=== PATIENT | female | born 1960 | race Caucasian/White ===

== ENCOUNTER → 2016-06-16 16:47 | Outpatient (CLI) | payer BC ==
[2015-08-06 05:33] VITALS: BMI 28.8
[~2016-06-16 16:47] MED LIST: ALDACTONE25 MG PO; AMITRIPTYLINE150 MG PO; AMOXICILLIN500 M1 PO; BAYER CHEWABLE81 MG PO; CARAFATE1 G PO; CARDIZEM120 MG PO; CATAPRES0.1 MG PO; CYMBALTA60 MG PO; EFFEXOR50 MG PO; FLAGYL500 MG PO; GAS-X125 M1 PO; HYDROCODON-ACE1 EAC9 PO; IBUPROFEN600 MG PO; KLONOPIN1 MG PO; L-LYSINE500 M1 PO; MUCINEX600 MG PO; NITROSTAT0.3 MG SL; PINDOLOL10 MG PO; PREVACID30 MG PO; RESTORIL15 MG PO; RITALIN20 MG PO; SINEQUAN100 MG PO; SOMA350 MG PO; VISTARIL50 MG PO; ZOFRAN4 MG PO
== END | disposition home or self-care (01) ==
LOC: D.MAMMO 08:30
DX: N63 Unspecified lump in breast (principal)

== ENCOUNTER → 2016-12-15 14:07 | Outpatient (CLI) | payer BC ==
[2015-08-06 05:33] VITALS: BMI 28.8
== END ==
LOC: D.CT 12-14 14:09
DX: N28.89 Other specified disorders of kidney and ureter (principal)

== ENCOUNTER 2018-02-15 06:15 | Day surgery (SDC) | payer BC ==
[~2018-02-15] VITALS: Ht 167.6 cm; Wt 83.9 kg
--- NOTE | ~2018-02-15 | OP ---
PATIENT NAME: JEREMY GOULD MEDICAL RECORD: [id number] :60 LOCATION:D.OPS ADMISSION DATE: SURGEON: EVA LEAVITT DPM DATE OF OPERATION: 02/15/2018 PREOPERATIVE DIAGNOSES: 1. HAV, left foot. 2. Instability, left first met cuneiform joint. POSTOPERATIVE DIAGNOSES: 1. HAV, left foot. 2. Instability, left first met cuneiform joint. PROCEDURES: 1. Quiles bunionectomy, left foot. 2. First met cuneiform joint fusion, left foot. ANESTHESIA: Preoperative popliteal block per the anesthesia department as well as intraoperative general anesthesia. HEMOSTASIS: Left thigh tourniquet at 350 mmHg. PREOPERATIVE DETAILS: The patient was taken to the OR and placed on the operating table in supine position, followed by induction of general anesthesia. No local anesthetic was infiltrated. The left extremity was then prepped and draped in usual aseptic technique, followed by exsanguination and inflation of tourniquet. PROCEDURE #1: Quiles bunionectomy, left foot: A 15-blade was used to create an incision from the dorsal aspect of the medial cuneiform distally to the base of proximal phalanx of the hallux. The incision was deepened down through subcutaneous tissue exposing the first MPJ. An inverted-L capsulotomy was performed. The medial capsular flap was reflected and the head of the first metatarsal was delivered. A sagittal saw was used to resect the medial eminence. Attention was then directed to the first interspace where a lateral release was performed. Good clinical reduction of lateral contracture was verified. There was also noted to be spurring on the lateral aspect of the head of the first metatarsal, which was removed with a rongeur. PROCEDURE #2: First met cuneiform joint fusion: Utilizing the incision as described above, the incision was carried down through the subcutaneous tissue being sure to avoid all vital structures. A periosteal incision was made, the length from the dorsal aspect of the medial cuneiform distally joining the capsular incision of the first MPJ. This gave deliverance of the first met cuneiform joint. A sagittal saw was used to resect the joint. Temporary fixation was then used and a 5-hole plate with 1 screw crossing the fusion site was then placed under rigid internal fixation. Excellent alignment was noted, verified by the C-arm. Wound was flushed. A 2-0 Vicryl was then used to close the first MPJ and repair the periosteum over the top of the plate. A 4-0 Rapide was then used to reapproximate the subcutaneous tissue, followed by closure of the skin with 4-0 Rapide in a subcuticular technique, followed by Dermabond. Adaptic, 4 x 4, and Conform were used to dress the wound, followed by application of a modified Butts compression dressing. Tourniquet was deflated. POSTOPERATIVE DETAILS: The patient tolerated the procedure well and left the OR OPERATIVE REPORT [id number] JEREMY GOULD with vital signs stable and vascular status at preoperative levels. The patient was transported to recovery per anesthesia in stable condition. TRANSINT:[id number] Voice Confirmation ID: [id number] DOCUMENT ID: [id number] EVA LEAVITT DPM at 0835 CC: [id number] DICTATION DATE: 02/15/18 1014 [employer]OMOTIONS INTERN: 02/15/18 1212 [facility] 02/15/18 [id number] [place] [address]
[~2018-02-15 06:15] MED LIST changes: +AMITRIPTYLINE100 MG PO; -AMITRIPTYLINE150 MG PO; +BUTALB-APAP-CA1 EACH PO; +FEMARA2.5 MG PO; +LEVOTHYROXINE75 MCG PO; +MAXALT MLT10 MG/TAB PO; +ROBAXIN500 MG PO; +VRAYLAR3 MG PO
[2018-02-15 07:32] VITALS: BP 143/77; Ht 167.6 cm; Wt 83.9 kg
== END 2018-02-15 11:50 | disposition home or self-care (01) ==
LOC: D.OPS 06:15
DX: M20.12 Hallux valgus (acquired), left foot (principal); M25.375 Other instability, left foot; Z01.812 Encounter for preprocedural laboratory examination

== ENCOUNTER 2018-09-12 19:00 | Outpatient (CLI) | payer BC ==
[2018-02-15 07:32] VITALS: BMI 29.9
== END 2018-09-12 23:59 | disposition home or self-care (01) ==
LOC: D.MAMMO 19:00
PROVIDERS: ATTEND Family Medicine
DX: Z12.31 Encounter for screening mammogram for malignant neoplasm of breast (principal)

== ENCOUNTER 2019-10-30 15:39 | Inpatient (IN) | payer OTHER ==
[~2019-10-30] VITALS: Ht 167.6 cm; Wt 86.2 kg
--- NOTE | ~2019-10-30 | HEMODYNAMI ---
PATIENT:JEREMY GOULD MEDICAL RECORD: [id number] : 60 LOCATION:[id number] ADMISSION DATE: 10/30/19 Generatedon:11/02/201915:46 Patient name: JEERMY GOULD Patient #: [id number] SSN: : 1960 Date of study: 11/02/2019 Page: Of Hemodynamic Procedure Report Patient Data Patient Demographics Procedure consent was obtained First Name: JEREMY Gender: Female Last Name: LUIS FERNANDO : 1960 Middle Initial: L Age: 58 year(s) Patient #: [id number] Race: Unknown Additional ID: [id number] Contact details [address]: [address] [place] [address] State: [place] City: [place] Zip code: [address] Past Medical History Allergies Allergen Reaction Date Comments Reported Iodine 11/02/2019 Other allergy 11/02/2019 floxins,enderal Admission Admission Data Admission Date: 10/30/2019 Admission Time: 15:39 Room #: [id number] Height (in.): 66 BSA: 1.95 (m2) Height (cm.): 167.64 BMI: 30.51 (kg/m2) Weight (lbs.): 189 Weight (kg.): 85.73 Procedure Procedure Types Cath Procedure Peripheral Cath Diagnostic Procedure [facility] Peripheral Procedures Venography Extremity Left Lower Ext. Venagram Procedure Description Procedure Date Procedure Date: 11/02/2019 Procedure Start Time: 14:50 Procedure Staff Name Function Reji Fairchild MD Performing Physician Safia Peguero RT Security Nurse Melanie Guy RN Nurse Dano Cleaning RT Scrub Procedure Data Cath Procedure Fluoroscopy Diagnostic fluoroscopy Total fluoroscopy Time: time: 10.2 min 10.2 min Diagnostic fluoroscopy Total fluoroscopy dose: dose: 1098 mGy 1098 mGy Contrast Material Contrast Material Type Amount (ml) Isovue 300 65 Procedure Medications Medication Administration Route Dosage Heparin Flush Bag added to field 3 bags (1000units/500ml NS) Lidocaine 1% added to field 20 Benadryl I.V. 50 mg Solumedrol I.V. 125 mg Versed I.V. 1 mg Fentanyl I.V. 50 mcg Versed I.V. 1 mg Fentanyl I.V. 50 mcg Fentanyl I.V. 100 mcg Heparin Bolus I.V. 4000 units Hemodynamics Rest BSA: 1.95 (m2) O2 Consumption: Estimated: 151.45 (ml/min) O2 Consumption indexed : Estimated:77.67 (ml/min/m) Heart Rate: 23 (bpm) Snapshots Pre Cath Intra NCS Post Cath Vital Signs Time Heart Resp SPO2 etCO2 NIBP (mmHg) Rhythm Pain Sedation Rate (ipm) (%) (mmHg) Status Level (bpm) 14:18:01 90 15 100 30.2 170/87(126) NSR 0 (11) 10(A) , No pain 14:22:17 93 13 99 29.4 169/93(104) NSR 0 (11) 10(A) , No pain 14:26:34 92 19 99 25.6 156/87(113) NSR 0 (11) 10(A) , No pain 14:31:32 92 12 99 16.5 Measuring NSR 0 (11) 10(A) , No pain 14:31:47 91 20 98 29.4 161/87(111) NSR 0 (11) 10(A) , No pain 14:36:03 91 8 99 30.8 156/81(114) NSR 0 (11) 10(A) , No pain 14:40:13 96 16 25.6 153/96(111) NSR 0 (11) 10(A) , No pain 14:44:25 96 12 27.1 168/90(131) NSR 0 (11) 10(A) , No pain 14:48:43 92 16 25.6 163/86(116) NSR 0 (11) 10(A) , No pain 14:52:57 93 15 30.9 171/91(123) NSR 0 (11) 10(A) , No pain 14:57:15 93 16 28.6 150/85(126) NSR 0 (11) 9(A) , No pain 15:01:27 93 18 27.1 161/86(117) NSR 0 (11) 9(A) , No pain 15:05:41 93 20 99 21.8 174/89(128) NSR 0 (11) 9(A) , No pain 15:09:59 91 13 100 30.1 158/88(113) NSR 0 (11) 9(A) , No pain 15:14:13 88 16 100 27.1 170/85(121) NSR 0 (11) 9(A) , No pain 15:18:29 89 18 99 25.6 187/89(124) NSR 0 (11) 9(A) , No pain 15:22:49 89 15 99 27.1 163/107(133) NSR 0 (11) 9(A) , No pain 15:27:48 81 14 99 27.8 Measuring NSR 0 (11) 9(A) , No pain 15:28:06 74 17 99 25.6 209/107(162) NSR 0 (11) 9(A) , No pain 15:32:35 85 15 100 32.4 193/96(139) NSR 0 (11) 9(A) , No pain 15:36:57 90 25 26.3 191/99(135) NSR 0 (11) 9(A) , No pain 15:41:19 92 19 31.6 186/116(134) NSR 0 (11) 9(A) , No pain Medications Time Medication Route Dose Verified Delivered Reason Notes Effe ctiveness by by 14:53:46 Heparin Flush added 3 Reji Mendoza used for Bag to bags Devorah Fairchild procedure (1000units/500ml field MD BARCENAS NS) 14:53:58 Lidocaine 1% added 20ml Reji Mendoza for local to vial Devorah Fairchild anesthetic field MD BARCENAS 14:54:35 Benadryl I.V. 50 mg Reji Navarro Per Devorah Guy RN physician 14:54:49 Solumedrol I.V. 125 Reji Navarro Per mg Devorah Guy RN physician 14:55:01 Versed I.V. 1 mg Reji Navarro for Devorah Guy RN sedation 14:55:13 Fentanyl I.V. 50 Reji Navarro for mcg Devorah Guy RN sedation 15:06:41 Versed I.V. 1 mg Reji Navarro for Devorah Guy RN sedation 15:06:51 Fentanyl I.V. 50 Reji Navarro for mcg Devorah Guy RN sedation 15:25:20 Heparin Bolus I.V. 4000 Reji Navarro Per units Devorah Guy RN physician 15:30:06 Fentanyl I.V. 100 Reji Navarro for [facility] Devorah Guy RN sedation Procedure Log Time Note 13:58:16 Patient Height : 66 inches 13:58:21 Patient Weight : 189 lbs 13:58:45 Time tracking: Regular hours (M-F 7:00 - 5:00) 13:59:35 Plan of Care:Hemodynamics will remain stable., Cardiac rhythm will remain stable., Comfort level will be maintained., Respiratory function will remain adequate., Patient/ family verbilizes understanding of procedure., Procedure tolerated without complication., Recovers from procedure without complications.. 13:59:41 Patient received from Med/Surg to IR Alert and oriented. Tansferred to table in Prone position. 13:59:43 Signed procedure consent form obtained from patient. 13:59:49 H&P Date Dictated: 11/02/2019 Within 30 days and on chart.. 13:59:52 Pre-procedure instructions explained to patient. 13:59:53 Pre-procedure instructions explained to patient. 13:59:54 Pre-op teaching completed and patient verbalized understanding. 14:00:01 Family unavailable. 14:00:03 Patient NPO since Midnight. 14:00:10 Patient allergic to Iodine 14:01:07 Patient allergic to Other allergyfloxins,enderal 14:01:16 Is the patient allergic to Iodine/contrast media? Yes. 14:01:24 Was the patient premedicated? Yes 14:01:26 Is patient on blood thinner?Yes 14:01:29 Patient diabetic? No. 14:01:33 - 14:01:34 ----Pre-sedation anethsthesia assessment.---- 14:01:39 Previous problem with sedation/anesthesia? No ? 14:01:45 Snore? Yes 14:01:47 Sleep apnea? No 14:01:51 Deviated septum? No 14:01:53 Opens mouth fully? Yes 14:01:55 Sticks out tongue? Yes 14:01:59 Airway obstruction? Yes cad 14:02:04 Dentures? No ? 14:02:12 Popliteal region area was prepped with chlora-prep and draped in steril e fashion 14:02:46 Use device set IR Diagnostic 14:02:57 - 14:03:34 BENTSON 145cm wire ([id number]) opened to sterile field. 14:03:35 SHEATH 6FR Brite Tip 35cm ([id number]) opened to sterile field. 14:03:36 Micropuncture VSI 4FR kit opened to sterile field. 14:03:37 Tegaderm 4 x 4 (1626W) opened to sterile field. 14:03:38 Sterile Angiographic Pack opened to sterile field. 14:03:39 Bag Decanter (2001S) opened to sterile field. 14:16:53 ECG and BP/O2 sat monitors applied to patient. 14:16:54 Vital chart was started 14:16:55 Baseline sample Acquired. 14:16:57 Full Disclosure recording started 14:16:59 - 14:17:03 Baseline sample Acquired. 14:17:36 - 14:17:48 Fire Safety Assessment: A--An alcohol-based skin anteseptic being used preoperatively., C--Open oxygen or nitrous oxide is being used. 14:49:41 Physician arrived 14:49:41 --------ALL STOP TIME OUT------ 14:49:42 Final Timeout: patient, procedure, and site verified with staff and physician. All members of the team are in agreement. 14:50:04 Procedure started. 14:50:14 Local anesthetic to left popliteal vein with Lidocaine 1% by Reji Fairchild MD.INITIAL ACCESS ONLY 14:53:46 Heparin Flush Bag (1000units/500ml NS) 3 bags added to field was administered by Reji Fairchild MD; used for procedure; Verbal order read back and verified. 14:53:58 Lidocaine 1% 20ml vial added to field was administered by Reji pruitt MD; for local anesthetic; Verbal order read back and verified. 14:54:35 Benadryl 50 mg I.V. was administered by Melanie Guy RN; Per physician ; Verbal order read back and verified. 14:54:49 Solumedrol 125 mg I.V. was administered by Melanie Guy RN; Per physician; Verbal order read back and verified. 14:55:01 Versed 1 mg I.V. was administered by Melanie Guy RN; for sedation; Verbal order read back and verified. 14:55:13 Fentanyl 50 mcg I.V. was administered by Melanie Guy RN; for sedation ; Verbal order read back and verified. 14:57:22 DILATOR, VESSEL 5/20 opened to sterile field. 15:06:41 Versed 1 mg I.V. was administered by Melanie Guy RN; for sedation; Verbal order read back and verified. 15:06:51 Fentanyl 50 mcg I.V. was administered by Melanie Guy RN; for sedation ; Verbal order read back and verified. 15:10:14 ROADRUNNER .035 145 glide wire ([id number]) opened to sterile field. 15:10:15 CXI Catheter 90cm ([id number]) opened to sterile field. 15:17:18 Sheath 8fr. Switzer 10cm opened to sterile field. 15:17:37 AMPLATZ Super stiff 3mm J 260cm wire ([id number]) opened to sterile field. 15:17:41 Zelante 8Fr Angiojet catheter opened to sterile field. 15:20:57 INFLATOR BasixTOUCH (ZE9451) opened to sterile field. 15:21:26 Inflate balloon Inflation number: 1 A Evercross 12 x 40 x 135 ([id number]) was prepped and advanced across the Undefined1 , then inflated . 15:25:20 Heparin Bolus 4000 units I.V. was administered by Melanie Guy RN; Per physician; Verbal order read back and verified. 15:30:06 Fentanyl 100 mcg I.V. was administered by Melanie Guy RN; for sedation; Verbal order read back and verified. 15:39:42 Procedure ended.(Physican Out) 15:40:08 Fluoroscopy time 10.20 minutes. 15:40:14 Fluoroscopy dose: 1098 mGy 15:40:14 Flurop Dose total: 1098 15:40:19 Contrast amount:Isovue 300 65ml. 15:40:23 Procedure and supply charges have been captured, reviewed, submitted an d are correct. 15:42:34 Report given to Med/Surg. 15:46:06 Vital chart was stopped Intervention Summary Intervention Notes Time ActionType Lesion and Equipment Used Action# Pressure Duration Attributes 15:21:26 Inflate Undefined1 Evercross 12 x 1 0 00:00 balloon 40 x 135 ([id number]) Device Usage Item Name Manufacture Quantity Catalog Hospital Part Current Min imal Lot# / Number Charge Number Stock Stock Serial# Code JULITO 145cm Cook [employer] 1 [id number] 238129 5 wire ([id number]) SHEATH 6FR Cardinal 1 [id number] 353159 381372 945226 1 Brite Tip 35cm Health ([id number]) Micropuncture VSI VASCULAR 1 7266V 208838 873542 5 VSI 4FR kit SOLUTIONS Tegaderm 4 x 4 3M 1 1626W 434556 254945 363544 5 (1626W) Sterile Cardinal 1 [id number] 989864 349637 5 Angiographic Health Pack Bag Decanter Microtek 1 735264 38563 745509 5 () Medical Inc. DILATOR, VESSEL [employer] 1 [id number] 218387 86647 270414 5 07/17 [address] .035 [employer] 1 Y17977 399749 957059 453418 5 [id number] 145 glide wire ([id number]) CXI Catheter [employer] 1 O67581 046396 499776 096810 5 [id number] 90cm ([id number]) Sheath 8fr. Terumo 1 HSV751 691520 7035210 5 Switzer 10cm AMPLATZ Super Dougherty 1 [id number] 657379 259643 5 stiff 3mm J Scientific 260cm wire ([id number]) Zelante 8Fr Dougherty 1 920882-460 028909 822794 070980 5 [employer] [facility] catheter INFLATOR Merit 1 IE1902 764522 926015 315236 5 BioIQ ([id number]) Evercross 12 x Medtronic 1 [id number] 807601 423196 088384 5 40 x 135 ([id number]) Signature Audit [place] Stage Time Signature Unsigned Intra-Procedure 11/02/2019 Safia Peguero 3:46:01 PM RT(R) [facility] [address] [place] [address]
--- NOTE | 2019-10-30 16:48 | NUR ---
RECEIVED PATIENT A DIRECT ADMIT. ALERT AND ORIENTED. NO C/O PAIN. NO S/S OF ACUTE DISTRESS NOTED. LEFT LEG RED AND SWOLLEN. C/O TINGLING AND NUMBESS TO LEFT LEG. SLIGHTLY PAINFUL AT THE THIGH. BEDREST AT THIS TIME. CALL LIGHT IN REACH. DENIES ANY NEEDS AT THIS TIME. WILL CONTINUE TO MONITOR.
[2019-10-30] MEDS ORDERED: PHENERGAN6.25 MG/5 PO (17:02)
[2019-10-30 17:36] LABS: BASOPHILS 0.7 % (0-2); EOSINOPHILS 2.9 % (0-7); HEMATOCRIT 34.5 % (36.0-48.0); HEMOGLOBIN 10.4 g/dL (12-16); IMMATURE GRANULOCYTES 0.8 % (0-5); LYMPHOCYTES 23.5 % (15-50); MCH 26.7 pg (26.0-34.0); MCHC 30.1 g/dL (31.0-37.0); MCV 88.7 fL (80.0-100.0); MEAN PLATELET VOLUME 8.6 fL (7.4-10.4); MONOCYTES 8.8 % (2-11); NEUTROPHILS 63.3 % (40-80); PLATELET COUNT 315 10x3/uL (130-400); RBC 3.89 10x6/uL (4.00-5.40); RDW 17.5 % (11.5-14.5); WBC 11.2 10x3/uL (4.8-10.8)
[2019-10-30 17:39] LABS: APTT 25.1 SECONDS (22.8-39.4); INR 1.1 (0.85-1.17); PROTIME 14.1 SECONDS (11.6-15.0)
[2019-10-30 17:57] LABS: ANION GAP 10.6 mmol/L (8-16); CALCIUM 8.9 mg/dL (8.5-10.1); CARBON DIOXIDE 21.7 mmol/L (21.0-32.0); POTASSIUM - SERUM 4.3 mmol/L (3.5-5.1)
[2019-10-30 18:03] LABS: ALBUMIN 3.8 g/dL (3.4-5.0); BILIRUBIN - TOTAL 0.11 mg/dL (0.2-1.3)
[2019-10-30 18:04] VITALS: BP 119/57
[2019-10-30 18:04] LABS: PROTEIN - SERUM 8.3 g/dL (6.4-8.2)
[2019-10-30 18:11] LABS: D-DIMER-QUANTITATIVE 9.11 ug/mLFEU (0.20-0.54)
--- NOTE | 2019-10-30 18:17 | NUR ---
A&O EATING SUPPER. NO C/O PAIN. NO S/S OF ACUTE DISTRESS NOTED. DENIES ANY NEEDS AT THIS TIME. CALL LIGHT IN REACH. WILL CONTINUE TO MONITOR.
--- NOTE | 2019-10-30 18:34 | NUR ---
PAGED NICOLETTE COWAN APN ABOUT D-DIMER OF 9.11.
[2019-10-30 19:17] LABS: BILIRUBIN NEGATIVE (NEGATIVE); KETONE NEGATIVE (NEGATIVE); NITRITE NEGATIVE (NEGATIVE); UROBILINOGEN NORMAL (NORMAL)
[2019-10-30 19:24] LABS: BACTERIA FEW /hpf (NONE SEEN); EPITHELIAL CELLS 0-5 /hpf (0-5)
[2019-10-30 20:00] VITALS: BP 133/76; BP 134/79
[2019-10-31] VITALS: BP 126/72
[2019-10-31 04:00] VITALS: BP 123/78
[2019-10-31 06:57] LABS: BASOPHILS 0.9 % (0-2); EOSINOPHILS 4.7 % (0-7); HEMOGLOBIN 9.1 g/dL (12-16); IMMATURE GRANULOCYTES 0.4 % (0-5); LYMPHOCYTES 33.8 % (15-50); MCH 26.1 pg (26.0-34.0); MCHC 29.4 g/dL (31.0-37.0); MCV 89.1 fL (80.0-100.0); MEAN PLATELET VOLUME 8.8 fL (7.4-10.4); MONOCYTES 12.6 % (2-11); NEUTROPHILS 47.6 % (40-80); PLATELET COUNT 340 10x3/uL (130-400); RBC 3.48 10x6/uL (4.00-5.40); RDW 17.8 % (11.5-14.5)
[2019-10-31 07:02] LABS: WBC 7.9 10x3/uL (4.8-10.8)
[2019-10-31 07:07] LABS: INR 1.11 (0.85-1.17); PROTIME 14.2 SECONDS (11.6-15.0)
[2019-10-31 07:09] LABS: APTT 31.5 SECONDS (22.8-39.4)
[2019-10-31 07:33] LABS: CALC OSMOLALITY 280 mosm/kg (275-300); CALCIUM 8.3 mg/dL (8.5-10.1); CARBON DIOXIDE 22.8 mmol/L (21.0-32.0); CHLORIDE - SERUM 105 mmol/L (98-107); CREATININE - SERUM 0.8 mg/dL (0.6-1.3); GLUCOSE 136 mg/dL (74-106); PHOSPHOROUS 3.7 mg/dL (2.5-4.9); SODIUM 139 mmol/L (136-145); eGFR NON AFRICAN AMERICAN 78 mL/min (90-120)
[2019-10-31 07:36] LABS: UREA NITROGEN 14 mg/dL (7-18)
[2019-10-31 09:35] VITALS: BP 143/85
[2019-10-31 13:25] VITALS: BP 149/87
[2019-10-31 14:51] VITALS: BMI 30.6
--- NOTE | 2019-10-31 16:10 | NUR ---
I have reviewed this patient and I concur with the Shift Assessment completed by the Licensed Practical Nurse today this shift.
[2019-10-31 17:36] VITALS: BP 136/67
--- NOTE | 2019-10-31 19:00 | NUR ---
A&O RESTING IN BED WITH EYES OPEN. DAUGHTER AT BEDSIDE. NO C/O PAIN. NO S/S OF ACUTE DISTRESS NOTED. DENIES ANY NEEDS AT THIS TIME. CALL LIGHT IN REACH. WILL CONTINUE TO MONITOR.
[2019-10-31 20:00] VITALS: BP 106/72
[2019-11-01] VITALS: BP 118/78
--- NOTE | 2019-11-01 03:04 | NUR ---
ALERT AND ORENTED X4 ABLE TO VOICE NEEDS AND WANTS TO STAFF. IV TO RIGHT AC WITH 1/[address] 89SR SCD IN PLACE TO RIGHT LEG PER ORDER,\ FAMILY AT BEDSIDE CALL LIGHT AND WATER IN REACH AT BEDSIDE. NO S/S OF DISTRESS NO NEEDS.
[2019-11-01 04:00] VITALS: BP 130/71
[2019-11-01 05:31] LABS: HEMATOCRIT 30.2 % (36.0-48.0); HEMOGLOBIN 9.1 g/dL (12-16); LYMPHOCYTES 19.3 % (15-50); MCH 26.6 pg (26.0-34.0); MCHC 30.1 g/dL (31.0-37.0); MCV 88.3 fL (80.0-100.0); MEAN PLATELET VOLUME 8.4 fL (7.4-10.4); NEUTROPHILS 68.7 % (40-80); PLATELET COUNT 384 10x3/uL (130-400); RBC 3.42 10x6/uL (4.00-5.40); RDW 17.3 % (11.5-14.5); WBC 8.4 10x3/uL (4.8-10.8)
[2019-11-01 05:36] LABS: CALC OSMOLALITY 275 mosm/kg (275-300); CALCIUM 8.3 mg/dL (8.5-10.1); CARBON DIOXIDE 22.4 mmol/L (21.0-32.0); CHLORIDE - SERUM 103 mmol/L (98-107); CREATININE - SERUM 0.8 mg/dL (0.6-1.3); GLUCOSE 157 mg/dL (74-106); MAGNESIUM - SERUM 1.8 mg/dL (1.8-2.4); PHOSPHOROUS 2.8 mg/dL (2.5-4.9); POTASSIUM - SERUM 3.9 mmol/L (3.5-5.1); SODIUM 136 mmol/L (136-145); UREA NITROGEN 15 mg/dL (7-18); eGFR NON AFRICAN AMERICAN 78 mL/min (90-120)
--- NOTE | 2019-11-01 07:20 | NUR ---
PT IS RESTING IN BED WITH EYES OPEN. RESPIRATIONS ARE EVEN AND UNLABORED. PT IS AAO X 4 AND ANSWERS ALL QUESTIONS APPROPRIATLEY. SWELLING NOTED TO LLE. LLE PEDAL PULSE IS PALP VERY FAINT AND WEAK. CAP REFILL IS < 3 SECONDS AND EXTREMITY IS WARM TO TOUCH. PT REPORTS SLIGHT PAIN RATED 5/10 TO LLE AND DENIES NEEDS FOR PAIN MANAGEMENT AT THIS TIME. FAMILY MEMBER IS AT BEDSIDE. SCD TO RLE. PIV TO RIGHT AC INFUSING PER ORDER WITHOUT DIFFICULTY. BED IS IN THE LOWEST POSITION. CALL LIGHT AND BEDSIDE TABLE ARE WITHIN REACH. SIDE RAILS X 2. PT DENIES FURTHER NEEDS. WILL CONT TO MONITOR.
[2019-11-01 10:22] VITALS: BP 120/74
--- NOTE | 2019-11-01 10:30 | NUR ---
PT WITH ALLERGY TO CONTRAST. PER DR ANGEL. START ALLERGY PREMED PROTOCOL. NOTIFIED CT. WILL WAIT FURTHER ORDERS/TIMES.
--- NOTE | 2019-11-01 11:10 | NUR ---
CT SCHEDULED FOR 0900 ON 11/02/2019. WILL ORDER PRE MED PROTOCOL WITH APPROPRIATE TIMING. SEE EMAR.
[2019-11-01 13:12] LABS: CA 27-29 21.6 U/mL (0.0-38.6)
[2019-11-01 13:46] VITALS: BP 159/88
[2019-11-01 14:10] LABS: CA125 6.3 U/mL (0.0-38.1); CEA 2.3 ng/mL (0.0-4.7)
--- NOTE | 2019-11-01 18:01 | NUR ---
CONSENTS FOR VENOGRAM WITH THROMBECTOMY SIGNED BY PATIENT. PT DENIES FURTHER QUESTIONS/CONCERNS/NEEDS. ALL SIGNED CONSENTS PLACED IN PT CHART.
[2019-11-01 18:07] VITALS: BP 154/76
[2019-11-01 20:00] VITALS: BP 126/77
[2019-11-02] VITALS (11 sets, daily range): BP systolic 130–175; BP diastolic 70–108
[2019-11-02 08:43] LABS: INR 1.13 (0.85-1.17); PROTIME 14.4 SECONDS (11.6-15.0)
[2019-11-02 08:47] LABS: BASOPHILS 0.3 % (0-2); EOSINOPHILS 0 % (0-7); HEMATOCRIT 30.7 % (36.0-48.0); HEMOGLOBIN 9.2 g/dL (12-16); IMMATURE GRANULOCYTES 0.5 % (0-5); LYMPHOCYTES 9.7 % (15-50); MCH 26.5 pg (26.0-34.0); MCV 88.5 fL (80.0-100.0); MEAN PLATELET VOLUME 8.9 fL (7.4-10.4); MONOCYTES 2.9 % (2-11); NEUTROPHILS 86.6 % (40-80); PLATELET COUNT 384 10x3/uL (130-400); RBC 3.47 10x6/uL (4.00-5.40); RDW 17.9 % (11.5-14.5); WBC 9.5 10x3/uL (4.8-10.8)
[2019-11-02 08:50] LABS: CALC OSMOLALITY 277 mosm/kg (275-300); CALCIUM 8.9 mg/dL (8.5-10.1); CHLORIDE - SERUM 104 mmol/L (98-107); CREATININE - SERUM 0.7 mg/dL (0.6-1.3); GLUCOSE 183 mg/dL (74-106); MAGNESIUM - SERUM 2.2 mg/dL (1.8-2.4); POTASSIUM - SERUM 4.2 mmol/L (3.5-5.1); SODIUM 137 mmol/L (136-145); eGFR NON AFRICAN AMERICAN > 90 mL/min (90-120)
[2019-11-02 08:51] LABS: PHOSPHOROUS 3.7 mg/dL (2.5-4.9); UREA NITROGEN 9 mg/dL (7-18)
--- NOTE | 2019-11-02 09:48 | NUR ---
ALERT AND ORIENTED X4. SKIN COOL AND DRY TO LLE WITH CAP REFILL <3 SEC. DENIES ANY PAIN OR DISCOMFORT AT THIS TIME. PATINET PREMEDICATED AND LEAVING WITH WITH STAFF FOR PROCEDURE. STABLE AT TIME OF DEPARTURE.
--- NOTE | 2019-11-02 10:09 | NUR ---
PATIENT RETURNED FROM PROCEDURE ALERT AND ORIENTED. DENIES ANY PAIN OR DISCOMFORT AT THIS TIME
--- NOTE | 2019-11-02 13:11 | NUR ---
Nutrition follow-up: Pt npo for thrombectomy today PO intake of regular diet 100% of dinner meal No BM recorded Labs reviewed Wt: 189# RDN following.
--- NOTE | 2019-11-02 17:30 | NUR ---
CALLED TO [facility] ROOM WITH PATIENT COMPLAINING OF LOWER ABDOMINAL PAIN RADIATING TO BACK RATING 10/10. DR. STRAUSS AND NICOLETTE COWAN APN NOTIFIED WITH NEW ORDERS NOTED.
--- NOTE | 2019-11-02 18:15 | NUR ---
SPOKE WITH TEST PREPARER AT THIS TIME. STATED PATEINT CALLED HER AND TOLD HER THAT HIS WAS IN PAIN, BP IS HIGH, AND THAT LABS WERE ORDERED AND NOT DRAWN YET. SHE STATED THAT WE CAN CALL AND GET PAIN MEDS AND WHATEVER WE NEED FROM PHYSICIAN, BUT THE STATED THAT ROBERT THE RN HAS ALREADY DONE THAT BUT THAT HE THOUGHT THAT ROBERT NEEDED HELP. CHECKED ON ROBERT. STATED HE ALREADY GAVE MORPHINE. LAB IS IN THE ROOM TO DRAW THE LABS. ROBERT HAS ALREADY TALKED TO DR. STRAUSS AND HAS PAGED NICOLETTE. HE IS GOING TO GIVE APPRESOLINE FOR BP. NO HELP NEEDED WITH THIS PATIENT AT THIS TIME. PATIENT IS STABLE, JUST IN PAIN AND ROBERT IS TAKING CARE OF THE SITUATION WITH NO PROBLEMS AT THIS TIME.
[2019-11-02 18:29] LABS: HEMATOCRIT 32.9 % (36.0-48.0); HEMOGLOBIN 10.2 g/dL (12-16)
[2019-11-03 04:00] VITALS: BP 134/89; BP 197/79
--- NOTE | 2019-11-03 04:29 | NUR ---
AT SHIFT FUNEZ PATIENT GETTING UP FROM BED TO G TO BATHROOM SHE STATED. WHEN STAFF WAS CALLED TO ROOM. BLOOD WAS ON THE FLOOR AND ON THE BED. WHEN CHECKING LEFT POPLITEAL INCISION SITE, SITE WAS BLEEDING DRESSING WAS REMOVED FROM SITE SMALL AREA OF TEGADREM WAS HANING ON ONE SIDE. PRESSER APPLIED TO SITE, AND HELD. UNTILL BLEEDING STOPED. NEW DRESSING APPLIED. EDUCATED PT TO KEEP LEG ELAVATED AND STILL, TO REST IN BED. SO THAT IT DID NOT START BLEEDING AGAIN. SHE STATED WELL WHAT AM I GOING TO DO I HAVE TO GO TO THE BATHROOM. EDUCATED PT. THAT WE WOULD GET HER A BEDPAN TO USE, AND DID. C/O ABD AND PELVAIC PAIN. SEAT COVER CUTTER CALLED AND INFORMED. GAVE PRN M.O.M. TO HELP WITH GAS. NO NEW ORDERS. PATIENT WANTED FOOD WAS EDCATED THAT THE DR AND NOT RESTARTED A DIET. SO SHE WAS TO REMAIN NPO SO IF THAE HAD TO DO EANYTHING IT WOULD NOT BE A PROBLEM, SHE STATED SHE UNDERSTOOD. WAS NOTED LATER TO BE IN BED EATTING CANDY AND DRINKS AT BEDSIDE. D
[2019-11-03 06:06] LABS: ANION GAP 13.3 mmol/L (8-16); CALCIUM 8.4 mg/dL (8.5-10.1); CARBON DIOXIDE 24.7 mmol/L (21.0-32.0); MAGNESIUM - SERUM 2.4 mg/dL (1.8-2.4); PHOSPHOROUS 3.7 mg/dL (2.5-4.9)
[2019-11-03 06:14] LABS: CREATININE - SERUM 0.9 mg/dL (0.6-1.3)
[2019-11-03 06:33] LABS: BASOPHILS 0.1 % (0-2); EOSINOPHILS 0 % (0-7); HEMATOCRIT 27.8 % (36.0-48.0); HEMOGLOBIN 8.3 g/dL (12-16); IMMATURE GRANULOCYTES 0.7 % (0-5); LYMPHOCYTES 11.5 % (15-50); MCH 26.3 pg (26.0-34.0); MCHC 29.9 g/dL (31.0-37.0); MCV 88.3 fL (80.0-100.0); MONOCYTES 7.2 % (2-11); NEUTROPHILS 80.5 % (40-80); PLATELET COUNT 356 10x3/uL (130-400); RBC 3.15 10x6/uL (4.00-5.40); RDW 18.4 % (11.5-14.5); WBC 14.9 10x3/uL (4.8-10.8)
--- NOTE | 2019-11-03 07:45 | NUR ---
AWAKE AND ALERT. ORIENTED X3. NO C/O AT THIS TIME. LUNGS HAVE FAINT WHEEZES THROUGH OUT THE LUNG SHERMAN. NO COUGH NOTED. SKIN IS INTACT WITHOUT REDNESS EXCEPT AREA TO BACK OF LEFT LEG BEHIND THE KNEE WHICH HAS A DRY INTACT DRESSING IN PLACE. DENIES NEEDS. IV TO RIGHT AC IS PATENT WITHOUT REDNESS AT INSERTION SITE. DENIES NEEDS.
[2019-11-03 10:00] VITALS: BP 121/58
--- NOTE | 2019-11-03 10:00 | NUR ---
RESTING QUIETLY IN BED. DENIES NEEDS.
--- NOTE | 2019-11-03 12:30 | NUR ---
LUNCH SERVED IN ROOM. ATE ALL OF MEAL DENIES NEEDS.
[2019-11-03 12:42] VITALS: BP 122/76
--- NOTE | 2019-11-03 14:37 | NUR ---
REQUESTED AND GIVNE ONE HYDROCODONE PO FOR C/O LEFT LEG PAIN LEVEL 7. WILL MONITOR.
[2019-11-03 17:39] VITALS: BP 130/53
--- NOTE | 2019-11-03 18:32 | NUR ---
ATE MOST OF SUPPER. SITTING UP IN CHAIR AT BEDSIDE. NO CHANGES NOTED. DENIES NEEDS.
--- NOTE | 2019-11-03 19:00 | NUR ---
BEDSIDE REPORT RECEIVED AND CARE OF PT ASSUMED. PT LYING IN HIGH BERRY'S POSITION VISITING WITH FAMILY MEMBER. IV TO RIGHT AC PATENT WITH NS INFUSING AT 50 ML/HR. TELEMETRY IN PLACE AND READING SR AT THIS ASSESSMENT.
[2019-11-03 20:00] VITALS: BP 139/73
--- NOTE | 2019-11-03 20:25 | NUR ---
HS MEDICATIONS GIVEN TO INCLUDE RESTORIL, KLONOPIN, AND NORCO PER PT REQUEST. WILL CONTINUE TO MONITOR FOR NEEDS.
[2019-11-04] VITALS (9 sets, daily range): BP systolic 125–168; BP diastolic 62–73
--- NOTE | 2019-11-04 01:35 | NUR ---
IV LEAKING...REMOVED WITH CATHETER TIP INTACT. X3 NURSES ATTEMPTED TO RE-SITE WITHOUT SUCCESS. WILL LEAVE OUT TILL AM FOR MD TO EVAL NEED FOR ADVANCED IV ACCESS.
[2019-11-04 06:35] LABS: BASOPHILS 0.4 % (0-2); EOSINOPHILS 1.3 % (0-7); HEMATOCRIT 23.6 % (36.0-48.0); LYMPHOCYTES 29.5 % (15-50); MCH 26.4 pg (26.0-34.0); MCHC 29.2 g/dL (31.0-37.0); MONOCYTES 8.1 % (2-11); NEUTROPHILS 59.7 % (40-80); PLATELET COUNT 386 10x3/uL (130-400); RBC 2.61 10x6/uL (4.00-5.40); RDW 18.6 % (11.5-14.5); WBC 11.4 10x3/uL (4.8-10.8)
[2019-11-04 06:36] LABS: HEMOGLOBIN 6.9 g/dL (12-16); MCV 90.4 fL (80.0-100.0)
--- NOTE | 2019-11-04 06:45 | NUR ---
PAGED ROBERT TORRES, REHABILITATION AIDE TO REPORT CRITICAL HEMAGLOBIN OF 6.9
[2019-11-04 06:51] LABS: CARBON DIOXIDE 22.9 mmol/L (21.0-32.0); CHLORIDE - SERUM 106 mmol/L (98-107); CREATININE - SERUM 0.8 mg/dL (0.6-1.3); MAGNESIUM - SERUM 2.1 mg/dL (1.8-2.4); PHOSPHOROUS 3.1 mg/dL (2.5-4.9); POTASSIUM - SERUM 3.8 mmol/L (3.5-5.1); SODIUM 140 mmol/L (136-145); eGFR NON AFRICAN AMERICAN 78 mL/min (90-120)
[2019-11-04 06:52] LABS: CALC OSMOLALITY 282 mosm/kg (275-300); GLUCOSE 93 mg/dL (74-106); UREA NITROGEN 23 mg/dL (7-18)
--- NOTE | 2019-11-04 09:00 | NUR ---
ALERT AND ORIENTED X4. ABDOMEN SOFT AND NONTENDER AT THIS TIME WITH BOWEL SOUNDS NOTED X4. IV RESTARTED WITH 20G TO RIGHT FOREARM X1 STICK AND VERBALIZED APPRECIATION OF CARE WITH IVF INFUSING AT PRESCRIBED RATE W/O ANY S/SOF INFECTION/INFILTRATION. UP ADLIB WITH NO SOB NOTED. ENCOURAGED TO USE CALL LIGHT FOR ASSSIT.
[2019-11-04 14:20] LABS: HEMATOCRIT 24.4 % (36.0-48.0)
[2019-11-04 14:22] LABS: HEMOGLOBIN 7.2 g/dL (12-16)
--- NOTE | 2019-11-04 15:00 | NUR ---
PATIENT STATES WANT TO HOLD MEDICATION UNTIL SPEAKING WITH MD REGARDING CT RESULTS. LINDSAY MODI NOTIFIED OF PATIENT CONCERNS AND STATED WOULD DISCORSS WITH DR. MCMANUS.
--- NOTE | 2019-11-04 15:26 | NUR ---
DR. MCMANUS HERE TO VISIT WITH PATIENT.
--- NOTE | 2019-11-04 16:00 | NUR ---
STARTED 1ST UNIT PRBC'S WITH NO S/S OF REACTION NOTED AT THIS TIME. ALERT AND OREINTED BUT ANXIOUS. STATED WOULD GET HER SOMETHING FOR ANXIETY AFTER 15 MINUTE PEROD OF MONITORING FOR REACTION
--- NOTE | 2019-11-04 19:00 | NUR ---
BEDSIDE REPORT RECEIVED AND CARE OF PT ASSUMED. PT LYING IN HIGH BERRY'S POSITION VISITING WITH FAMILY MEMBER. LEFT LEG SWOLLEN FROM GROIN TO FOOT. TELEMETRY IN PLACE AND READING SR AT THIS ASSESSMENT. IV TO RIGHT FA PATENT, LINE FLUSHING AFTER BLOOD ADMINISTRATION. WILL MONITOR FOR NEEDS.
--- NOTE | 2019-11-04 21:19 | NUR ---
HS MEDICATIONS GIVEN TO INCLUDE DILAUDID 1 MG IVP AND RESTORIL PO PER PRN ORDERS.
--- NOTE | 2019-11-04 21:45 | NUR ---
STARTED 2ND UNIT OF PRBC'S. VITALS STABLE AND PT IS AFEBRILE.
[2019-11-05] VITALS: BP 138/59
--- NOTE | 2019-11-05 00:02 | NUR ---
PT RESTING WITH EYES CLOSED. PRBC'S INFUSION CONTINUES. VITALS STABLE AND PT IS AFEBRILE.
--- NOTE | 2019-11-05 00:35 | NUR ---
2ND UNIT OF PRBC'S COMPLETE AND LINES FLUSHING. VITALS STABLE AND PT IS AFEBRILE.
[2019-11-05 04:00] VITALS: BP 157/14
[2019-11-05 06:43] LABS: BASOPHILS 0.4 % (0-2); EOSINOPHILS 3.6 % (0-7); IMMATURE GRANULOCYTES 1.5 % (0-5); LYMPHOCYTES 21.3 % (15-50); MCH 27.7 pg (26.0-34.0); MCHC 31.2 g/dL (31.0-37.0); MCV 88.9 fL (80.0-100.0); MEAN PLATELET VOLUME 8.9 fL (7.4-10.4); NEUTROPHILS 64.2 % (40-80); PLATELET COUNT 318 10x3/uL (130-400); RDW 17.7 % (11.5-14.5); WBC 10.2 10x3/uL (4.8-10.8)
[2019-11-05 06:44] LABS: HEMATOCRIT 31.1 % (36.0-48.0); HEMOGLOBIN 9.7 g/dL (12-16)
[2019-11-05 07:17] LABS: ALBUMIN 2.9 g/dL (3.4-5.0); ALKALINE PHOSPHATASE 150 U/L (30-120); ALT (SGPT) 47 U/L (10-68); BILIRUBIN - TOTAL 0.13 mg/dL (0.2-1.3); CARBON DIOXIDE 24.7 mmol/L (21.0-32.0); CHLORIDE - SERUM 105 mmol/L (98-107); CREATININE - SERUM 0.8 mg/dL (0.6-1.3); FERRITIN 44 ng/mL (3-244); POTASSIUM - SERUM 3.6 mmol/L (3.5-5.1); PROTEIN - SERUM 6.3 g/dL (6.4-8.2); SODIUM 139 mmol/L (136-145); eGFR NON AFRICAN AMERICAN 78 mL/min (90-120)
[2019-11-05 07:22] LABS: CALC OSMOLALITY 281 mosm/kg (275-300); GLUCOSE 151 mg/dL (74-106); UREA NITROGEN 15 mg/dL (7-18)
[2019-11-05 09:27] VITALS: BP 139/69
[2019-11-05 12:25] LABS: HEMOGLOBIN 10.1 g/dL (12-16)
[2019-11-05 13:45] VITALS: BP 157/58
[2019-11-05 15:21] LABS: HEMATOCRIT 31.2 % (36.0-48.0); HEMOGLOBIN 9.9 g/dL (12-16)
[2019-11-05 17:48] VITALS: BP 138/63
--- NOTE | 2019-11-05 19:15 | NUR ---
BEDSIDE REPORT RECEIVED AND CARE OF PT ASSUMED. PT LYING IN HIGH BERRY'S POSITION VISITING WITH DAUGHTER. IV TO RIGHT FA APTENT WITH HEPARIN INFUSING AT 10 ML/HR. TELEMETRY IN PLACE AND READING SR AT THIS ASSESSMENT. LLE REMAINS VERY SWOLLEN. LEFT PEDAL PULSE PALPATED.
[2019-11-05 20:28] VITALS: BP 135/61
--- NOTE | 2019-11-05 21:00 | NUR ---
HS MEDICATIONS GIVEN. PT DECLINED CARDIZEM AND GABAPENTEN. ADDED NORCO AND RESTORIL FOR PAIN AND SLEEP PER REQUEST. WILL CONTINUE TO MONITOR FOR NEEDS.
--- NOTE | 2019-11-05 21:05 | NUR ---
REVIEWED MD'S NOTES AND TEST RESULTS WITH PT PER HER REQUEST.
[2019-11-05 21:33] LABS: HEMATOCRIT 30.2 % (36.0-48.0); HEMOGLOBIN 9.5 g/dL (12-16)
[2019-11-06 00:24] VITALS: BP 145/58
[2019-11-06 06:51] LABS: ALBUMIN 2.6 g/dL (3.4-5.0); ALKALINE PHOSPHATASE 161 U/L (30-120); BILIRUBIN - TOTAL 0.34 mg/dL (0.2-1.3); CALC OSMOLALITY 275 mosm/kg (275-300); CALCIUM 8.2 mg/dL (8.5-10.1); CARBON DIOXIDE 23.7 mmol/L (21.0-32.0); CHLORIDE - SERUM 103 mmol/L (98-107); CREATININE - SERUM 0.8 mg/dL (0.6-1.3); GLUCOSE 143 mg/dL (74-106); PROTEIN - SERUM 6.2 g/dL (6.4-8.2); SODIUM 137 mmol/L (136-145); UREA NITROGEN 13 mg/dL (7-18); eGFR NON AFRICAN AMERICAN 78 mL/min (90-120)
[2019-11-06 06:52] LABS: ALT (SGPT) 78 U/L (10-68); POTASSIUM - SERUM 4.2 mmol/L (3.5-5.1)
[2019-11-06 07:59] LABS: BASOPHILS 0.5 % (0-2); EOSINOPHILS 3.2 % (0-7); HEMATOCRIT 30.7 % (36.0-48.0); HEMOGLOBIN 9.6 g/dL (12-16); IMMATURE GRANULOCYTES 1.7 % (0-5); LYMPHOCYTES 20.9 % (15-50); MCHC 31.3 g/dL (31.0-37.0); MCV 89.5 fL (80.0-100.0); MEAN PLATELET VOLUME 9.6 fL (7.4-10.4); MONOCYTES 8.5 % (2-11); NEUTROPHILS 65.2 % (40-80); PLATELET COUNT 259 10x3/uL (130-400); RBC 3.43 10x6/uL (4.00-5.40); RDW 18.4 % (11.5-14.5); WBC 10.9 10x3/uL (4.8-10.8)
[2019-11-06 08:41] VITALS: BP 145/77
[2019-11-06 13:12] VITALS: BP 159/71
[2019-11-06 14:02] LABS: HEMATOCRIT 31.4 % (36.0-48.0); HEMOGLOBIN 9.8 g/dL (12-16)
[2019-11-06 15:11] LABS: FACTOR II DNA ANALYSIS Negative (())
[2019-11-06 16:24] VITALS: BP 146/71
--- NOTE | 2019-11-06 17:32 | NUR ---
PT REFUSED TO STOP HEPARIN DRIP, SHE REFUSED LOVENOX, AND SHE ALSO REFUSED IR. BHARATH WAS INFORMED AND SAID TO CONTINUE WHAT THE PT WANTS AND SHE WILL SPEAK WITH HER TOMORROW. CONTINUING TO MONITOR
--- NOTE | 2019-11-06 19:00 | NUR ---
PT HAS AN ASSORTMENT OF THINGS AND REQUESTS A THIS TIME FAMILY IS PRESENT BED IS LOW AND LOCKED AND CALL LIGHT IS IN REACH
[2019-11-06 19:03] LABS: APTT 30.2 SECONDS (22.8-39.4); INR 1.01 (0.85-1.17); PROTIME 13.2 SECONDS (11.6-15.0)
[2019-11-06 20:00] VITALS: BP 124/70
--- NOTE | 2019-11-06 22:42 | NUR ---
PT HAS REQUESTWED MANY NEEDS AND PRN MEDS I HAVE SEEN TO ALL THESE AT THIS TIME PT STATES THAT SHE IS GOOD AT THIS TIME
[2019-11-07 04:00] VITALS: BP 144/70
--- NOTE | 2019-11-07 06:05 | NUR ---
I have reviewed this patient and I concur with the Shift Assessment completed by the Licensed Practical Nurse today this shift.
[2019-11-07 07:23] LABS: BASOPHILS 0.3 % (0-2); EOSINOPHILS 3.6 % (0-7); HEMATOCRIT 31.1 % (36.0-48.0); HEMOGLOBIN 9.7 g/dL (12-16); IMMATURE GRANULOCYTES 1.7 % (0-5); LYMPHOCYTES 14.6 % (15-50); MCH 27.9 pg (26.0-34.0); MCHC 31.2 g/dL (31.0-37.0); MCV 89.4 fL (80.0-100.0); MEAN PLATELET VOLUME 8.8 fL (7.4-10.4); MONOCYTES 11.4 % (2-11); NEUTROPHILS 68.4 % (40-80); PLATELET COUNT 351 10x3/uL (130-400); RBC 3.48 10x6/uL (4.00-5.40); RDW 18.5 % (11.5-14.5); WBC 12.2 10x3/uL (4.8-10.8)
[2019-11-07 07:36] LABS: ALBUMIN 2.6 g/dL (3.4-5.0); ALKALINE PHOSPHATASE 154 U/L (30-120); BILIRUBIN - TOTAL 0.27 mg/dL (0.2-1.3); CALC OSMOLALITY 276 mosm/kg (275-300); CALCIUM 8.3 mg/dL (8.5-10.1); CARBON DIOXIDE 24.5 mmol/L (21.0-32.0); CHLORIDE - SERUM 103 mmol/L (98-107); CREATININE - SERUM 0.7 mg/dL (0.6-1.3); GLUCOSE 175 mg/dL (74-106); POTASSIUM - SERUM 3.8 mmol/L (3.5-5.1); PROTEIN - SERUM 6.5 g/dL (6.4-8.2); SODIUM 137 mmol/L (136-145); UREA NITROGEN 11 mg/dL (7-18); eGFR NON AFRICAN AMERICAN > 90 mL/min (90-120)
[2019-11-07 07:39] LABS: ALT (SGPT) 108 U/L (10-68)
[2019-11-07 09:36] VITALS: BP 118/64
[2019-11-07 13:03] LABS: HEMATOCRIT 32.4 % (36.0-48.0)
[2019-11-07 13:24] VITALS: BP 134/66
--- NOTE | 2019-11-07 14:05 | NUR ---
Nutrition follow-up: Pt receiving a regular diet with po intake ~75% of meals Labs reviewed Wt: 189# +BM PO intake good at this time RDN following.
[2019-11-07 18:21] VITALS: BP 124/54
--- NOTE | 2019-11-07 19:35 | NUR ---
PATIENT ALERT AND ORIENTED. HEPARIN DRIP INFUSING PER PROTOCAL WITH CORRECT LIMITS. REQUESTING PAIN MEDICATION FOR GENERALIZED PAIN. ASSESSMENT PERFORMED. DAUGHTER AT BEDSIDE SLEEPING. DENIES FURTHER NEEDS. CALL LIGHT CLOSE. CPOC.
[2019-11-07 20:00] VITALS: BP 132/54
--- NOTE | 2019-11-07 21:29 | NUR ---
INCREASED LIMITS PER HEPARIN PROTOCAL. DOCUMENTED IN HEPARIN FLOW SHEET.
[2019-11-07 21:40] LABS: HEMATOCRIT 31.7 % (36.0-48.0); HEMOGLOBIN 9.9 g/dL (12-16)
[2019-11-07 21:49] LABS: INR 0.99 (0.85-1.17)
[2019-11-07 22:18] LABS: APTT 53.1 SECONDS (22.8-39.4)
[2019-11-08 04:00] VITALS: BP 149/57
--- NOTE | 2019-11-08 04:55 | NUR ---
WAITING FOR RESULTS OF APTT AND SEE THAT LAB CANCELLED 0430 APTT THAT THIS NURSE HAD SCHEDULED. LAB HAD CHANGED IT TO 515 WITH "ROUTINE" LABS. SPOKE WITH ROUNDHOUSE WORKER ON FLOOR AND SHE IS CURRENTLY DRAWING SO THAT RESULTS CAN BE EVALUATED AND HEPARIN DRIP ADJUSTED ACCORDINGLY.
--- NOTE | 2019-11-08 05:19 | NUR ---
LAB DRAWN BY PHLEBOTOMOTIST AND THIS NURSE DELIVERED TO LAB.
[2019-11-08 05:46] LABS: BASOPHILS 0.7 % (0-2); EOSINOPHILS 2.8 % (0-7); HEMATOCRIT 31.4 % (36.0-48.0); HEMOGLOBIN 9.7 g/dL (12-16); IMMATURE GRANULOCYTES 1.8 % (0-5); LYMPHOCYTES 15.7 % (15-50); MCH 27.6 pg (26.0-34.0); MCHC 30.9 g/dL (31.0-37.0); MCV 89.2 fL (80.0-100.0); MONOCYTES 12.5 % (2-11); NEUTROPHILS 66.5 % (40-80); PLATELET COUNT 420 10x3/uL (130-400); RBC 3.52 10x6/uL (4.00-5.40); RDW 18.2 % (11.5-14.5); WBC 13.3 10x3/uL (4.8-10.8)
--- NOTE | 2019-11-08 06:07 | NUR ---
STILL AWAITING APTT RESULTS.
[2019-11-08 06:59] LABS: ALBUMIN 2.7 g/dL (3.4-5.0); ALKALINE PHOSPHATASE 157 U/L (30-120); ALT (SGPT) 90 U/L (10-68); BILIRUBIN - TOTAL 0.33 mg/dL (0.2-1.3); CALCIUM 8.2 mg/dL (8.5-10.1); CARBON DIOXIDE 25.3 mmol/L (21.0-32.0); CHLORIDE - SERUM 104 mmol/L (98-107); CREATININE - SERUM 0.8 mg/dL (0.6-1.3); GLUCOSE 171 mg/dL (74-106); POTASSIUM - SERUM 4.3 mmol/L (3.5-5.1); PROTEIN - SERUM 6.2 g/dL (6.4-8.2); SODIUM 137 mmol/L (136-145); eGFR NON AFRICAN AMERICAN 78 mL/min (90-120)
[2019-11-08 07:03] LABS: CALC OSMOLALITY 275 mosm/kg (275-300); UREA NITROGEN 8 mg/dL (7-18)
--- NOTE | 2019-11-08 07:10 | NUR ---
PT IS RESTING IN BED WITH EYES OPEN RESPIRATIONS ARE EVEN AND UNLABORED. PT IS AAO X 4. PT DENIES PRESENCE OF PAIN/N/V AT THIS TIME. LLE EDEMA NOTED. LLE PEDAL PULSE IS PALP BUT FAINT/WEAK. LLE CAP REFILL IS < 3 SECONDS AND PT DENIES PRESENCE OF NUMBNESS/TINGLING TO BUE AND BLE. PIV TO RIGHT FA INFUSING PER ORDER. SCD TO RIGHT LEG. PT WITH DAUGHTER AT BEDSIDE. BED IS IN THE LOWEST POSITION. CALL LIGHT AND BEDSIDE TABLE ARE WITHIN REACH. SIDE RAILS X 2. PT DENIES FURTHER NEEDS. WILL CONT TO MONITOR.
[2019-11-08 09:48] VITALS: BP 160/77
[2019-11-08 12:00] VITALS: BP 126/67
--- NOTE | 2019-11-08 12:00 | NUR ---
HEPARIN INFUSING PER ORDER. NO CHANGE IN RATE NEEDED AT THIS TIME PER PROTOCOL. PT IS RESTING IN BED WITH EYES OPEN. PT DENIES PRESENCE OF PAIN/N/V AT THIS TIME. SCD TO RLE. BED IS IN THE LOWEST POSITION. CALL LIGHT AND BEDSIDE TABLE ARE WITHIN REACH. SIDE RAILS X 2. PT DENIES FURTHER NEEDS. MAGDALENA CONT TO MONITOR.
[2019-11-08 12:15] LABS: BASOPHILS 0.6 % (0-2); HEMOGLOBIN 9.5 g/dL (12-16); IMMATURE GRANULOCYTES 2.3 % (0-5); LYMPHOCYTES 18.7 % (15-50); MCH 27.3 pg (26.0-34.0); MCHC 30.6 g/dL (31.0-37.0); MCV 89.1 fL (80.0-100.0); MEAN PLATELET VOLUME 8.7 fL (7.4-10.4); MONOCYTES 14.4 % (2-11); PLATELET COUNT 438 10x3/uL (130-400); RBC 3.48 10x6/uL (4.00-5.40); RDW 18.1 % (11.5-14.5)
[2019-11-08 17:14] VITALS: BP 167/72
--- NOTE | 2019-11-08 19:17 | NUR ---
FEW NEEDS SEEN TO BED LOW AND LOCKED AND CALL LIGHT IS IN PLACE
[2019-11-08 20:00] VITALS: BP 145/4
[2019-11-08 21:46] LABS: HEMATOCRIT 30.4 % (36.0-48.0); HEMOGLOBIN 9.4 g/dL (12-16)
--- NOTE | 2019-11-08 22:10 | NUR ---
PTT 64.6 I INCREASED BY 100UNITS
[2019-11-09] VITALS: BP 142/71
[2019-11-09 04:00] VITALS: BP 134/65
[2019-11-09 06:32] LABS: BASOPHILS 0.7 % (0-2); EOSINOPHILS 4.4 % (0-7); HEMATOCRIT 32.3 % (36.0-48.0); HEMOGLOBIN 9.6 g/dL (12-16); IMMATURE GRANULOCYTES 2.3 % (0-5); LYMPHOCYTES 22.4 % (15-50); MCH 26.9 pg (26.0-34.0); MCHC 29.7 g/dL (31.0-37.0); MCV 90.5 fL (80.0-100.0); MEAN PLATELET VOLUME 9.1 fL (7.4-10.4); MONOCYTES 13.6 % (2-11); NEUTROPHILS 56.6 % (40-80); PLATELET COUNT 496 10x3/uL (130-400); RBC 3.57 10x6/uL (4.00-5.40); RDW 18.3 % (11.5-14.5); WBC 12.1 10x3/uL (4.8-10.8)
[2019-11-09 06:52] LABS: ALBUMIN 2.5 g/dL (3.4-5.0); ALKALINE PHOSPHATASE 149 U/L (30-120); ALT (SGPT) 69 U/L (10-68); BILIRUBIN - TOTAL 0.16 mg/dL (0.2-1.3); CALC OSMOLALITY 278 mosm/kg (275-300); CALCIUM 8.5 mg/dL (8.5-10.1); CARBON DIOXIDE 26.7 mmol/L (21.0-32.0); CHLORIDE - SERUM 104 mmol/L (98-107); CREATININE - SERUM 0.8 mg/dL (0.6-1.3); GLUCOSE 134 mg/dL (74-106); POTASSIUM - SERUM 3.8 mmol/L (3.5-5.1); PROTEIN - SERUM 6.9 g/dL (6.4-8.2); SODIUM 139 mmol/L (136-145); UREA NITROGEN 10 mg/dL (7-18); eGFR NON AFRICAN AMERICAN 78 mL/min (90-120)
[2019-11-09 09:24] VITALS: BP 135/61
[2019-11-09 09:28] VITALS: Ht 167.6 cm; Wt 86.2 kg
[2019-11-09 12:11] LABS: CA 27-29 24.4 U/mL (0.0-38.6)
[2019-11-09 13:51] VITALS: BP 148/74
[2019-11-09 14:42] LABS: HEMATOCRIT 31.2 % (36.0-48.0); HEMOGLOBIN 9.5 g/dL (12-16)
[2019-11-09 16:09] LABS: CEA 1.9 ng/mL (0.0-4.7)
[2019-11-09 17:43] VITALS: BP 120/59
[2019-11-10 04:00] VITALS: BP 139/69
--- NOTE | 2019-11-10 05:16 | NUR ---
I have reviewed this patient and I concur with the Shift Assessment completed by the Licensed Practical Nurse today this shift.
[2019-11-10 06:28] LABS: BASOPHILS 0.9 % (0-2); EOSINOPHILS 4.5 % (0-7); HEMATOCRIT 30.6 % (36.0-48.0); HEMOGLOBIN 9.3 g/dL (12-16); IMMATURE GRANULOCYTES 2.1 % (0-5); MCH 27.3 pg (26.0-34.0); MCHC 30.4 g/dL (31.0-37.0); MCV 89.7 fL (80.0-100.0); MEAN PLATELET VOLUME 9.2 fL (7.4-10.4); MONOCYTES 12.4 % (2-11); NEUTROPHILS 60.1 % (40-80); PLATELET COUNT 547 10x3/uL (130-400); RBC 3.41 10x6/uL (4.00-5.40); RDW 18.2 % (11.5-14.5); WBC 10.3 10x3/uL (4.8-10.8)
[2019-11-10 06:59] LABS: ALBUMIN 2.5 g/dL (3.4-5.0); ALKALINE PHOSPHATASE 147 U/L (30-120); ALT (SGPT) 56 U/L (10-68); CALC OSMOLALITY 276 mosm/kg (275-300); CALCIUM 8.9 mg/dL (8.5-10.1); CHLORIDE - SERUM 103 mmol/L (98-107); CREATININE - SERUM 0.7 mg/dL (0.6-1.3); GLUCOSE 134 mg/dL (74-106); POTASSIUM - SERUM 3.8 mmol/L (3.5-5.1); PROTEIN - SERUM 6.6 g/dL (6.4-8.2); SODIUM 138 mmol/L (136-145); UREA NITROGEN 9 mg/dL (7-18); eGFR NON AFRICAN AMERICAN > 90 mL/min (90-120)
--- NOTE | 2019-11-10 09:00 | NUR ---
ALERT AND ORIENTED X4. LLE ELEVATED WITH PEDAL PUSES WEAK BUT NOTED WITH GENERALIZED EDEMA AND CAP REFILL<3 SEC. NO CHANGE IN PAIN STATUS WITH PAIN MANAGED / WITH HYDROCODONE AND EFFECTIVE. IVF INFUSING TO LEFT F/A W/O ANY S/S OF INFECTION/INFILTRATION. ENCOURAGED TO USE CALL LIGHT FOR ASSIST.
[2019-11-10 09:54] VITALS: BP 135/68
[2019-11-10] MEDS ORDERED: LOVENOX INJ100 MG/ML SC (12:15)
[2019-11-10] MEDS ORDERED: KENALOG 0.1 % 115 GM TOPICAL (12:17)
[2019-11-10 12:43] VITALS: BP 141/74
--- NOTE | 2019-11-10 13:00 | NUR ---
ANTICIPATED DISCHARGE WITH PATIENT REFUSING TO PUT TELEMETRY BACK ON AT THIS TIME. DR. MADISON ATTEMPTING TO CONSULT DR. HATFIELD AT THIS TIME PENDING TEST RESULTS. PATIENT MADE AWARE OF SITUATION AT THIS TIME. DENIES ANY APIN OR DISCOMFORT AT THIS TIME.
--- NOTE | 2019-11-10 14:17 | MORECARE ---
CASE MANAGEMENT DISCHARGE SUMMARY PATIENT: JEREMY GOULD UNIT: [id number] ADM DATE: 10/30/19 AGE: 58 : 60 SEX: F ROOM/BED: D.[facility]7 AUTHOR: KALYN PATEL PHYSICIAN: REFERRING PHYSICIAN: MARTA AMOR MD DATE OF SERVICE: 11/10/19 Discharge Plan Patient Name: JEREMY GOULD Facility: [facility]:[place] : 1960 Planned Disposition: Home Anticipated Discharge Date: 11/10/19 Discharge Date: Expected LOS: 11 Initial Reviewer: [id number] Initial Review Date: 10/30/2019 Generated: 11/10/19 3:17 pm Patient Name: JEREMY GOULD Page [id number] at 1417 All edits/amendments must be made on the electronic document DICTATION DATE: 11/10/19 1416 PRECISION HONER: SANDEEP 11/10/19 1416 RPT#: [id number] DC DATE: STATUS: ADM IN [facility] [address] [place] [address] END OF REPORT
--- NOTE | 2019-11-10 14:24 | MORECARE ---
CASE MANAGEMENT DISCHARGE SUMMARY PATIENT: EJREMY GOULD UNIT: [id number] ADM DATE: 10/30/19 AGE: 58 : 60 SEX: F ROOM/BED: D.2237 AUTHOR: KALYN PATEL PHYSICIAN: REFERRING PHYSICIAN: MARTA AMOR MD DATE OF SERVICE: 11/10/19 Discharge Plan Patient Name: JEREMY GOULD Facility: [facility]:[place] : 1960 Planned Disposition: Home Anticipated Discharge Date: 11/10/19 Discharge Date: Expected LOS: 11 Initial Reviewer: [id number] Initial Review Date: 10/30/2019 Generated: 11/10/19 3:23 pm Last DP export: 11/10/19 1:18 p Patient Name: JEREMY GOULD Page [id number] at 1424 All edits/amendments must be made on the electronic document DICTATION DATE: 11/10/191423 DOOR MANAGER: SANDEEP 11/10/19 1424 RPT#: [id number] DC DATE: STATUS: ADM IN [facility] [address] [place] [address] END OF REPORT
--- NOTE | 2019-11-10 14:31 | MORECARE ---
CASE MANAGEMENT DISCHARGE SUMMARY PATIENT: JEREMY GOULD UNIT: [id number] ADM DATE: 10/30/19 AGE: 58 : 60 SEX: F ROOM/BED: D.[facility]7 AUTHOR: KALYN PATEL PHYSICIAN: REFERRING PHYSICIAN: MARTA AMOR MD DATE OF SERVICE: 11/10/19 Discharge Plan Patient Name: JEREMY GOULD [facility] : 1960 Planned Disposition: Home Anticipated Discharge Date: 11/10/19 Discharge Date: Expected LOS: 11 Initial Reviewer: [email or web address] Initial Review Date: 10/30/2019 Generated: 11/10/19 3:30 pm DCPIA - Discharge Planning Initial Assessment Updated by [email or web address]: Donte Ruiz on 11/10/19 2:25 pm * Is the patient Alert and Oriented? Yes * How many steps to enter\exit or inside your home? 1/0 * PCP Dr. Amor * Pharmacy [facility] [address]/[facility] on [address] * Preadmission Environment Home with Family * ADLs Independent * Equipment Crutch * List name and contact numbers for known caregivers / representatives who currently or will assist patient after discharge: Efra Ventura - [phone] * Verbal permission to speak to the caregivers and representatives has been obtained from the patient. Yes * Community resources currently utilized None * Additional services required to return to the preadmission environment? No * Can the patient safely return to the preadmission environment? Yes * Has this patient been hospitalized within the prior 30 days at any hospital? No Last DP export: 11/10/19 1:24 p Patient Name: JEREMY GOULD Page [id number] at 1431 All edits/amendments must be made on the electronic document DICTATION DATE: 11/10/19 143 CRYSTAL MACHINING COORDINATOR: SANDEEP 11/10/191429 RPT#: [id number] DC DATE: STATUS: ADM IN [facility] [address] [place] [address] END OF REPORT
--- NOTE | 2019-11-10 14:45 | MORECARE ---
CASE MANAGEMENT DISCHARGE SUMMARY PATIENT: JEREMY GOULD UNIT: [id number] ADM DATE: 10/30/19 AGE: 58 : 60 SEX: F ROOM/BED: D.2237 AUTHOR: AMANDA,DOC PHYSICIAN: REFERRING PHYSICIAN: MARTA AMOR MD DATE OF SERVICE: 11/10/19 Discharge Plan Patient Name: JEREMY GOULD Facility: [facility]:[place] : 1960 Planned Disposition: Home Anticipated Discharge Date: 11/10/19 Discharge Date: Expected LOS: 11 Initial Reviewer: [email or web address] Initial Review Date: 10/30/2019 Generated: 11/10/19 3:44 pm Comments DCP- Discharge Planning Updated by [email or web address]: Donte Ruiz on 11/10/19 1:[address] Patient Name: JEREMY GOULD Admission Status: Urgent Accout number: [id number] Admission Date: 10-30-2019 : 1960 Admission Diagnosis:ACUTE EMBOLISM AND THOMBOS UNSP DEEP VEINS OF L LOW EXT Attending: MARTA AMOR Current LOS: 11 Anticipated DC Date: 11-10-2019 Planned Disposition: Home Primary Insurance: [employer] INS EXCHANGE Discharge Planning Comments: Explained CM role and received permission to assess patient for DC. Patient lives at home with Efra Ventura life partner [phone]. Patient feels that her home environment is safe for discharge. Explained lower levels of care to patient for SNF, HH, DME, and IPR. Patient declines all lower levels of care. Patient has concerns for medication cost. Medication concern was addressed and explained to patient. Patient verbalized understanding declined . Patient has no other concerns and no other DC needs were identified at this time. Will continue to assist with DC needs. Manager Garage: Donte Ruiz DCPIA - Discharge Planning Initial Assessment Updated by [id number]: Donte Ruiz on 11/10/19 2:25 pm * Is the patient Alert and Oriented? Yes * How many steps to enter\exit or inside your home? 1/0 * PCP Dr. Amor * [facility] [address] [address] * Preadmission Environment Home with Family * ADLs Independent * Equipment Crutch * List name and contact numbers for known caregivers / representatives who currently or will assist patient after discharge: Efra Ventura - [phone] * Verbal permission to speak to the caregivers and representatives has been obtained from the patient. Yes * Community resources currently utilized None * Additional services required to return to the preadmission environment? No * Can the patient safely return to the preadmission environment? Yes * Has this patient been hospitalized within the prior 30 days at any hospital? No Coverage Notice Reviewer: [email or web address] Linda Ruiz Notice Issued Date-Time: 11/10/2019 13:50 Notice Type: Patient Choice Letter Notice Delivered To: Patient Relationship to Patient: Water/Wastewater Project Manager Name: Delivery Method: HAND - Hand Delivered Akila Days: Prior Verbal Notification: Recipient Understood Notice: Yes Recipient Signature: Yes Med Rec Note Co-signed by Attending: Coverage Notice Comment: Refused HH, SNF, IPR, and DME Last DP export: 11/10/19 1:31 p Patient Name: JEREMY GOULD Page [phone] at 1445 All edits/amendments must be made on the electronic document DICTATION DATE: 11/10/19 1444 MALTED MILK SUPERVISOR: SANDEEP 11/10/19 1444 RPT#: [id number] DC DATE: STATUS: ADM IN [facility] [address] [place] [address] END OF REPORT
--- NOTE | 2019-11-10 15:20 | MORECARE ---
CASE MANAGEMENT DISCHARGE SUMMARY PATIENT: JEREMY GOULD UNIT: [id number] ADM DATE: 10/30/19 AGE: 58 : 60 SEX: F ROOM/BED: D.2237 AUTHOR: AMANDADOC PHYSICIAN: REFERRING PHYSICIAN: MARTA AMOR MD DATE OF SERVICE: 11/10/19 Discharge Plan Patient Name: JEREMY GOULD Facility: [facility]:[place] : 1960 Planned Disposition: Home Anticipated Discharge Date: 11/10/19 Discharge Date: Expected LOS: 11 Initial Reviewer: [id number] Initial Review Date: 10/30/2019 Generated: 11/10/19 4:19 pm Comments DCP- Discharge Planning Updated by [email or web address]: Gloria Aguilar on 11/10/19 2:[address] Patient Name: JEREMY GOULD Encounter No: [id number] : 1960 Primary Insurance: [employer] INS EXCHANGE Anticipated DC Date: 11-10-2019 Planned Disposition: Home External Planned Provider: : DCP follow-up note: CM met with pt about medication cost. Pt states she has insurance but is unsure if the medication is covered. Pt pharmacy [facility] is closed, so pt would like to use [facility] on [address] to fill medication. CM called [facility] on [address] and spoke with Shana Aldana about medication. Pharmacist states the medication was filled at [facility], and so she is unable to fill the RX under insurance. she can only provide a martell martin. CM spoke with Taz about the medication barrier. Taz states he will speak with the dr and house worker general to give her enough medication to last until the pharmacy opens. Pt in agreement with plan. Gloria Aguilar DCP- Discharge Planning Updated by [email or web address]: Donte Ruiz on 11/10/19 1:[address] Patient Name: JEREMY GOULD Admission Status: Urgent Accout number: [id number] Admission Date: 10-30-2019 : 1960 Admission Diagnosis:ACUTE EMBOLISM AND THOMBOS UNSP DEEP VEINS OF L LOW EXT Attending: MARTA AMOR Current LOS: 11 Anticipated DC Date: 11-10-2019 Planned Disposition: Home Primary Insurance: [employer] INS EXCHANGE Discharge Planning Comments: Explained CM role and received permission to assess patient for DC. Patient lives at home with Efra Ventura life partner [phone]. Patient feels that her home environment is safe for discharge. Explained lower levels of care to patient for SNF, HH, DME, and IPR. Patient declines all lower levels of care. Patient has concerns for medication cost. Medication concern was addressed and explained to patient. Patient verbalized understanding declined . Patient has no other concerns and no other DC needs were identified at this time. Will continue to assist with DC needs. Dressage Judge: Donte Ruiz DCPIA - Discharge Planning Initial Assessment Updated by [id number]: Donte Ruiz on 11/10/19 2:25 pm * Is the patient Alert and Oriented? Yes * How many steps to enter\exit or inside your home? 1/0 * PCP Dr. Amor * Pharmacy [facility] [address]/[facility] on [address] * Preadmission Environment Home with Family * ADLs Independent * Equipment Crutch * List name and contact numbers for known caregivers / representatives who currently or will assist patient after discharge: Efra Ventura - [phone] * Verbal permission to speak to the caregivers and representatives has been obtained from the patient. Yes * Community resources currently utilized None * Additional services required to return to the preadmission environment? No * Can the patient safely return to the preadmission environment? Yes * Has this patient been hospitalized within the prior 30 days at any hospital? No Coverage Notice Reviewer: [id number] - Donte Ruiz Notice Issued Date-Time: 11/10/2019 13:50 Notice Type: Patient Choice Letter Notice Delivered To: Patient Relationship to Patient: Engraver Pantograph Name: Delivery Method: HAND - Hand Delivered Akila Days: Prior Verbal Notification: Recipient Understood Notice: Yes Recipient Signature: Yes Med Rec Note Co-signed by Attending: Coverage Notice Comment: Refused HH, SNF, IPR, and DME Last DP export: 11/10/19 1:45 p Patient Name: JEREMY GOULD Page [id number] at 1520 All edits/amendments must be made on the electronic document DICTATION DATE: 11/10/191518 SENIOR PROFESSIONAL SERVICES CONSULTANT: DM 11/10/191518 RPT#: [id number] DC DATE: STATUS: ADM IN [facility] [address] [place] [address] END OF REPORT
[2019-11-10 16:00] VITALS: BP 149/66
[2019-11-10 20:00] VITALS: BP 155/63
--- NOTE | 2019-11-10 22:49 | NUR ---
PATIENT REFUSED LOVENOX. STATES"THEY TOLD ME TODAY I STILL HAVE A BLEED IN MY STOMACH SO I DONT UNDERSTAND WHY IM STILL TAKING BLOOD THINNER. I DONT WANT IT TONIGHT. I WANT TO TALK TO THE TOMORROW" AT BEDSIDE
[2019-11-11 04:00] VITALS: BP 149/67
[2019-11-11 06:24] LABS: HEMATOCRIT 32.3 % (36.0-48.0); HEMOGLOBIN 9.6 g/dL (12-16); MCH 26.9 pg (26.0-34.0); MCHC 29.7 g/dL (31.0-37.0); MCV 90.5 fL (80.0-100.0); MEAN PLATELET VOLUME 8.6 fL (7.4-10.4); RBC 3.57 10x6/uL (4.00-5.40); RDW 18.1 % (11.5-14.5); WBC 10.1 10x3/uL (4.8-10.8)
[2019-11-11 08:46] VITALS: BP 145/61
--- NOTE | 2019-11-11 09:00 | NUR ---
ALERT AND ORIENTED X4. PEDAL PULSES CONTINUED WEAK WITH GENERALIZED SWELLING. PATIENT STATED THOUGHT PAIN MIGHT BE ALITTLE BETTER. NORCO GIVEN FOR PAIN 5/10 AT THIS TIME. IVF INFUSING AT PRESCRIBED RATE TO RT. F/A WITH NO S/S OF INFECTION/INFILTRATION. ENCOURAGED TO USE CALL LIGHT FOR ASSSIT.
[2019-11-11 12:44] VITALS: BP 145/72
--- NOTE | 2019-11-11 12:45 | NUR ---
PATIENT REFUSED LOVENOX DUE TO INTERNAL BLEEDING. DISCUSSED RISK VERSUS BENEFITS.
[2019-11-11 16:42] VITALS: BP 130/62
[2019-11-11 20:00] VITALS: BP 135/56
--- NOTE | 2019-11-11 23:38 | NUR ---
WATCHING TV WITH NO DISTRESS NOTED. IV TO RFA INTACT WIHOUT REDNESS OR EDEMA NOTED. LLE REMAINS EDEMATOUS AND RED. CL IN REACH. FAMILY AT BEDSIDE.
[2019-11-12 04:00] VITALS: BP 140/67
[2019-11-12 07:53] LABS: HEMATOCRIT 36.7 % (36.0-48.0); HEMOGLOBIN 11.1 g/dL (12-16); MCH 27.6 pg (26.0-34.0); MCHC 30.2 g/dL (31.0-37.0); MCV 91.3 fL (80.0-100.0); PLATELET COUNT 514 10x3/uL (130-400); RBC 4.02 10x6/uL (4.00-5.40); RDW 18.1 % (11.5-14.5); WBC 10.1 10x3/uL (4.8-10.8)
[2019-11-12 08:43] LABS: CALC OSMOLALITY 269 mosm/kg (275-300); CALCIUM 8.6 mg/dL (8.5-10.1); CARBON DIOXIDE 23.9 mmol/L (21.0-32.0); CHLORIDE - SERUM 101 mmol/L (98-107); CREATININE - SERUM 0.8 mg/dL (0.6-1.3); GLUCOSE 171 mg/dL (74-106); MAGNESIUM - SERUM 1.9 mg/dL (1.8-2.4); POTASSIUM - SERUM 3.9 mmol/L (3.5-5.1); SODIUM 134 mmol/L (136-145); UREA NITROGEN 7 mg/dL (7-18); eGFR NON AFRICAN AMERICAN 78 mL/min (90-120)
[2019-11-12 09:11] VITALS: BP 128/62
[2019-11-12] MEDS ORDERED: ELIQUIS5 MG PO (12:24)
[2019-11-12 12:41] VITALS: BP 140/66
[2019-11-12] MEDS ORDERED: NICODERM CQ1 EAC3 TOPICAL (13:03)
[2019-11-12 13:32] LABS: ANISOCYTOSIS OCC; EOSINOPHILS 4 % (0-7); LYMPHOCYTES 12 % (15-50); MONOCYTES 6 % (2-11); NEUTROPHILS 74 % (40-80); PLATELET ESTIMATE INCREASED; ROULEAUX OCC
--- NOTE | 2019-11-12 13:40 | MORECARE ---
CASE MANAGEMENT DISCHARGE SUMMARY PATIENT: JEREMY GOULD UNIT: [id number] ADM DATE: 10/30/19 AGE: 58 : 60 SEX: F ROOM/BED: D.2237 AUTHOR: AMANDA,DOC PHYSICIAN: REFERRING PHYSICIAN: MARTA AMOR MD DATE OF SERVICE: 11/12/19 Discharge Plan Patient Name: JEREMY GOULD Facility: [facility]:[place] : 1960 Planned Disposition: Home Anticipated Discharge Date: 11/10/19 Discharge Date: Expected LOS: 11 Initial Reviewer: [email or web address] Initial Review Date: 10/30/2019 Generated: 11/12/19 2:40 pm Comments DCP- Discharge Planning Updated by [email or web address]: Gladys Walter on 11/12/19 12:[address] Patient Name: JEREMY GOULD Admission Status: Urgent Accout number: [id number] Admission Date: 10-30-2019 : 1960 Admission Diagnosis:ACUTE EMBOLISM AND THOMBOS UNSP DEEP VEINS OF L LOW EXT Attending: MARTA AMOR Current LOS: 13 Anticipated DC Date: 11-10-2019 Planned Disposition: Home Primary Insurance: [employer] INS EXCHANGE Discharge Planning Comments: SPOKE WITH PATIENT ABOUT HOME HEALTH. PATIENT DOES NOT WANT HOME HEALTH, REFUSAL FORMED SIGNED BY PATIENT AND PLACED ON CHART. Evp General Counsel: Gladys Walter DCP- Discharge Planning Updated by [email or web address]: Gloria Aguilar on 11/10/19 2:[address] Patient Name: JEREMY GOULD Encounter No: [id number] : 1960 Primary Insurance: [employer] INS EXCHANGE Anticipated DC Date: 11-10-2019 Planned Disposition: Home External Planned Provider: : DCP follow-up note: CM met with pt about medication cost. Pt states she has insurance but is unsure if the medication is covered. Pt pharmacy [facility] is closed, so [facility] [address] to fill medication. CM called [facility] on [address] and spoke with Shana Aldana about medication. Pharmacist states the medication was filled at [facility], and so she is unable to fill the RX under insurance. she can only provide a martell martin. CM spoke with Taz about the medication barrier. Taz states he will speak with the dr and house mother to give her enough medication to last until the pharmacy opens. Pt in agreement with plan. Gloria Aguilar DCP- Discharge Planning Updated by [id number]: Donte Ruiz on 11/10/19 1:[address] Patient Name: JEREMY GOULD Admission Status: Urgent Accout number: [id number] Admission Date: 10-30-2019 : 1960 Admission Diagnosis:ACUTE EMBOLISM AND THOMBOS UNSP DEEP VEINS OF L LOW EXT Attending: MARTA AMOR Current LOS: 11 Anticipated DC Date: 11-10-2019 Planned Disposition: Home Primary Insurance: [employer] INS EXCHANGE Discharge Planning Comments: Explained CM role and received permission to assess patient for DC. Patient lives at home with Efra Ventura life partner [phone]. Patient feels that her home environment is safe for discharge. Explained lower levels of care to patient for SNF, HH, DME, and IPR. Patient declines all lower levels of care. Patient has concerns for medication cost. Medication concern was addressed and explained to patient. Patient verbalized understanding declined . Patient has no other concerns and no other DC needs were identified at this time. Will continue to assist with DC needs. Evp General Counsel: Donte Ruiz DCPIA - Discharge Planning Initial Assessment Updated by [email or web address]: Donte Ruiz on 11/10/19 2:25 pm * Is the patient Alert and Oriented? Yes * How many steps to enter\exit or inside your home? 1/0 * PCP Dr. Amor * Pharmacy [facility] [address]/[facility] on [address] * Preadmission Environment Home with Family * ADLs Independent * Equipment Crutch * List name and contact numbers for known caregivers / representatives who currently or will assist patient after discharge: Efra Ventura - [phone] * Verbal permission to speak to the caregivers and representatives has been obtained from the patient. Yes * Community resources currently utilized None * Additional services required to return to the preadmission environment? No * Can the patient safely return to the preadmission environment? Yes * Has this patient been hospitalized within the prior 30 days at any hospital? No Coverage Notice Reviewer: [email or web address] Linda Ruiz Notice Issued Date-Time: 11/10/2019 13:50 Notice Type: Patient Choice Letter Notice Delivered To: Patient Relationship to Patient: Director Of Application Development Name: Delivery Method: HAND - Hand Delivered Akila Days: Prior Verbal Notification: Recipient Understood Notice: Yes Recipient Signature: Yes Med Rec Note Co-signed by Attending: Coverage Notice Comment: Refused HH, SNF, IPR, and DME Reviewer: [email or web address] Linda Walter Notice Issued Date-Time: 11/12/2019 12:54 Notice Type: Patient Choice Letter Notice Delivered To: Relationship to Patient: Director Of Application Development Name: Delivery Method: HAND - Hand Delivered Akila Days: Prior Verbal Notification: Recipient Understood Notice: Yes Recipient Signature: Yes Med Rec Note Co-signed by Attending: Coverage Notice Comment: REFUSAL SIGNED FOR HH Last DP export: 11/10/19 2:20 p Patient Name: JEREMY GOULD Page [id number] at 1340 All edits/amendments must be made on the electronic document DICTATION DATE: 11/12/19 1340 SQUADRON WORKER: SANDEEP 11/12/19 1340 RPT#: [id number] DC DATE: STATUS: ADM IN [facility] [address] [place] [address] END OF REPORT
[2019-11-12 14:10] LABS: FACTOR II DNA ANALYSIS Negative (())
--- NOTE | 2019-11-12 14:46 | NUR ---
PATIENT IN BED DENIES ANY PAIN OR NEEDS. BED LOW POSITION, CALL LIGHT IN REACH. WILL CONTINUE TO MONITOR.
--- NOTE | 2019-11-12 15:49 | NUR ---
DISCHARGE TEACHING COMPLETE. NO FURTHER QUESTIONS. IV CATH REMOVED. CATH TIP INTACT. PATIENT GATHERING BELONGIGNS WAITING ON RIDE TO ARRIVE.
--- NOTE | 2019-11-12 16:29 | NUR ---
PATIENT LEFT UNIT VIA WHEELCHAIR. BELONGINGS TAKEN WITH.
--- NOTE | 2019-11-13 10:03 | MORECARE ---
CASE MANAGEMENT DISCHARGE SUMMARY PATIENT: JEREMY GOULD UNIT: [id number] ADM DATE: 10/30/19 AGE: 58 : 60 SEX: F ROOM/BED: D.2237 AUTHOR: AMANDA,DOC PHYSICIAN: REFERRING PHYSICIAN: MARTA AMOR MD DATE OF SERVICE: 11/13/19 Discharge Plan Patient Name: JEREMY GOULD Facility: [facility]:[place] : 1960 Planned Disposition: Home Anticipated Discharge Date: 11/10/19 Discharge Date: 11/12/2019 Expected LOS: 11 Initial Reviewer: [email or web address] Initial Review Date: 10/30/2019 Generated: 11/13/19 11:02 am Comments DCP- Discharge Planning Updated by [id number]: Gladys Walter on 11/12/19 12:[address] Patient Name: JEREMY GOULD Admission Status: Urgent Accout number: [id number] Admission Date: 10-30-2019 : 1960 Admission Diagnosis:ACUTE EMBOLISM AND THOMBOS UNSP DEEP VEINS OF L LOW EXT Attending: MARTA AMOR Current LOS: 13 Anticipated DC Date: 11-10-2019 Planned Disposition: Home Primary Insurance: [employer] EXCHANGE Discharge Planning Comments: SPOKE WITH PATIENT ABOUT HOME HEALTH. PATIENT DOES NOT WANT HOME HEALTH, REFUSAL FORMED SIGNED BY PATIENT AND PLACED ON CHART. Aerotriangulation Specialist: Gladys Walter DCP- Discharge Planning Updated by [email or web address]: Gloria Aguilar on 11/10/19 2:[address] Patient Name: JEREMY GOULD Encounter No: [id number] : 1960 Primary Insurance: [employer] EXCHANGE Anticipated DC Date: 11-10-2019 Planned Disposition: Home External Planned Provider: : DCP follow-up note: CM met with pt about medication cost. Pt states she has insurance but is unsure if the medication is covered. Pt pharmacy [facility] is closed, so pt would like to use [facility] on [address] to fill medication. CM called [facility] on [address] and spoke with Shana Aldana about medication. Pharmacist states the medication was filled at [facility], and so she is unable to fill the RX under insurance. she can only provide a martell martin. CM spoke with Taz about the medication barrier. Taz states he will speak with the dr and boarding house cook to give her enough medication to last until the pharmacy opens. Pt in agreement with plan. Gloria Aguilar DCP- Discharge Planning Updated by [id number]: Donte Ruiz on 11/10/19 1:[address] Patient Name: JEREMY GOULD Admission Status: Urgent Accout number: [id number] Admission Date: 10-30-2019 : 1960 Admission Diagnosis:ACUTE EMBOLISM AND THOMBOS UNSP DEEP VEINS OF L LOW EXT Attending: MARTA AMOR Current LOS: 11 Anticipated DC Date: 11-10-2019 Planned Disposition: Home Primary Insurance: [employer] INS EXCHANGE Discharge Planning Comments: Explained CM role and received permission to assess patient for DC. Patient lives at home with Efra Ventura life partner [phone]. Patient feels that her home environment is safe for discharge. Explained lower levels of care to patient for SNF, HH, DME, and IPR. Patient declines all lower levels of care. Patient has concerns for medication cost. Medication concern was addressed and explained to patient. Patient verbalized understanding declined . Patient has no other concerns and no other DC needs were identified at this time. Will continue to assist with DC needs. Aerotriangulation Specialist: Donte Ruiz DCPIA - Discharge Planning Initial Assessment Updated by [email or web address]: Donte Ruiz on 11/10/19 2:25 pm * Is the patient Alert and Oriented? Yes * How many steps to enter\exit or inside your home? 1/0 * PCP Dr. Amor * [facility] [address] * Preadmission Environment Home with Family * ADLs Independent * Equipment Crutch * List name and contact numbers for known caregivers / representatives who currently or will assist patient after discharge: Efra Ventura - [phone] * Verbal permission to speak to the caregivers and representatives has been obtained from the patient. Yes * Community resources currently utilized None * Additional services required to return to the preadmission environment? No * Can the patient safely return to the preadmission environment? Yes * Has this patient been hospitalized within the prior 30 days at any hospital? No Coverage Notice Reviewer: [id number] Linda Ruiz Notice Issued Date-Time: 11/10/2019 13:50 Notice Type: Patient Choice Letter Notice Delivered To: Patient Relationship to Patient: [employer] Supervisor Name: Delivery Method: HAND - Hand Delivered Akila Days: Prior Verbal Notification: Recipient Understood Notice: Yes Recipient Signature: Yes Med Rec Note Co-signed by Attending: Coverage Notice Comment: Refused HH, SNF, IPR, and DME Reviewer: [id number] Linda Walter Notice Issued Date-Time: 11/12/2019 12:54 Notice Type: Patient Choice Letter Notice Delivered To: Relationship to Patient: [employer] Supervisor Name: Delivery Method: HAND - Hand Delivered Akila Days: Prior Verbal Notification: Recipient Understood Notice: Yes Recipient Signature: Yes Med Rec Note Co-signed by Attending: Coverage Notice Comment: REFUSAL SIGNED FOR HH Last DP export: 11/12/19 12:40 p Patient Name: JEREMY GOULD Page [id number] at 1003 All edits/amendments must be made on the electronic document DICTATION DATE: 11/13/19 1002 ANALOG IC DESIGN ENGINEER: SANDEEP 11/13/19 1002 RPT#: [id number] DC DATE:11/12/19 STATUS: DIS IN [facility] [address] [place] [address] END OF REPORT
== END 2019-11-12 16:29 | disposition home or self-care (01) | DRG 271 ==
LOC: D.MS 15:39
PROVIDERS: Emergency Medicine; Family Medicine; General Practice; Internal Medicine Hematology & Oncology; Internal Medicine Medical Oncology; Radiology Diagnostic Radiology; Radiology Vascular & Interventional Radiology; ADMIT Family Medicine; ATTEND Family Medicine
PROC: 3E05317 Introduction of Other Thrombolytic into Peripheral Artery, Percutaneous Approach (ICD-10-PCS; 2019-11-02)
PROC: 04CD3ZZ Extirpation of Matter from Left Common Iliac Artery, Percutaneous Approach (ICD-10-PCS; principal; 2019-11-02 13:30)
DX: I82.402 Acute embolism and thrombosis of unspecified deep veins of left lower extremity (principal); I87.1 Compression of vein; I10 Essential (primary) hypertension; F41.8 Other specified anxiety disorders; G47.00 Insomnia, unspecified; E03.9 Hypothyroidism, unspecified; K21.9 Gastro-esophageal reflux disease without esophagitis; F90.9 Attention-deficit hyperactivity disorder, unspecified type; G89.4 Chronic pain syndrome; Z85.3 Personal history of malignant neoplasm of breast; D64.9 Anemia, unspecified; R58 Hemorrhage, not elsewhere classified